=== PATIENT | male | born 1995 | race Caucasian/White ===

== ENCOUNTER 2019-01-10 11:23 | Outpatient (REF) | payer MEDICAID, SELFPAY ==
[2019-01-10 18:43] LABS: Abs Immature Grans 0.01 k/cumm (0.0-0.09); Absolute Basophil Count 0.02 k/cumm (0.0-0.2); Absolute Eosinophil Count 0.11 k/cumm (0.0-0.7); Absolute Lymphocyte Count 1.82 k/cumm (1.2-3.4); Absolute Monocyte Count 0.53 k/cumm (0.11-0.7); Basophils % 0.4; Eosinophils % 2.3; HCT 42.4 % (40.0-50.0); HGB 14.8 g/dL (13.5-17.5); Immature Grans % 0.2; Mean Corp. HGB Concentration 34.9 g/dL (32.0-36.0); Mean Platelet Volume 10.1 fL (8.0-11.0); Monocytes % 11.1; Platelet Count 162 x1000/uL (130-400); RBC 4.93 m/cumm (4.50-6.00); RBC Distribution Width 12.7 % (11.8-14.1); White Blood Cell Count 4.79 k/cumm (4.4-10.8)
[2019-01-10 18:44] LABS: ALT 148 U/L (12-78); AST 47 U/L (15-37); Albumin 4.2 g/dL (3.4-5.0); Alkaline Phosphatase 32 U/L (46-116); Anion Gap 7.4 mmol/L (3-11); BUN 13 mg/dL (7-18); Bilirubin, Total 0.6 mg/dL (0.2-1.0); CO2 29.6 mmol/L (21.0-32.0); CREATININE 0.89 mg/dL (0.70-1.30); Calcium 9.1 mg/dL (8.5-10.1); Chloride 104 mmol/L (98-107); Glucose 84 mg/dL (70-100); Sodium 141 mmol/L (136-145); Total Protein 7.6 g/dL (6.4-8.2)
[2019-01-12 09:55] LABS: Hepatitis B Surface Ag Negative (NEGAT)
[2019-01-12 09:59] LABS: HIV-1/2 Ag & Ab Screen Negative (NEGAT)
[2019-01-12 11:39] LABS: Hep A Total Ab w Rflx IgM Positive (NEGAT); Hep B Core Antibody Negative (NEGAT)
[2019-01-13 00:13] LABS: HCV Genotype 1a (Undetected)
[2019-01-14 09:44] LABS: ALT 134 U/L (7-55); ActiTest Grade A3; ActiTest Interpretation severe activity; ActiTest Score 0.63; Alpha-2-Macroglobulin 146 mg/dL (100 - 280); Apoliprotein A1 104 mg/dL (>=120); Bilirubin, Total 0.6 mg/dL (<=1.2); FibroTest Interpretation no fibrosis; FibroTest Score 0.16; FibroTest Stage F0; GGT 10 U/L (8 - 61); Haptoglobin 38 mg/dL (30 - 200)
[2019-01-14 12:05] LABS: Hep A Antibody IgM Negative (NEGAT)
== END 2019-01-10 11:43 ==
LOC: NCHCN ADD 11:23
PROVIDERS: PCP Nurse Practitioner Family; Visit Provider Nurse Practitioner Family
DX: B19.20 Unspecified viral hepatitis C without hepatic coma (principal); Z11.4 Encounter for screening for human immunodeficiency virus [HIV]
CPT/HCPCS: 80053; 82172; 82247; 82542; 82977; 83010; 83883; 84460; 86704; 86709; 87340; 87389; 85025; 87521; 87522

== ENCOUNTER 2019-01-30 06:45 | Emergency (ER) | payer MEDICAID, SELFPAY ==
[2019-01-30 06:53] VITALS: BP 117/76; PULSE 82; RESP 18; TEMP 36.7; O2SAT 95
--- NOTE | 2019-01-30 07:10 | DI.RAD_ITS ---
SYMPTOMS/DIAGNOSIS: COUGH, MALAISE PA AND LATERAL CHEST: The heart is normal in size. The lungs are clear. The mediastinal structures and pleura appear intact. CONCLUSION: Normal chest.
--- NOTE | 2019-01-30 07:13 | ED.GENADUL_ITS ---
Discharge Plan Disposition Patient Disposition: HOME Condition: Good Discharge Details Chief Complaint: GenMedical Clinical Impression: Nausea, Hypomagnesemia, Gastritis Primary Care Provider: Merly Puga ED Provider: Willam Mensah Home Meds and New Rx's Prescriptions: New magnesium 200 mg tablet 200 mg PO DAILY Qty: 10 RF: 0 No Action omeprazole 20 MG capsule,delayed release(DR/EC) 20 mg PO DAILY RF: 0 albuterol sulfate [ProAir HFA] 8.5 GM HFA aerosol inhaler 2 puff Inhalation Q6H PRN RF: 0 Fluticasone/Salmeterol [Advair 250-50 Diskus] 1 EACH Blst.W.Dev 1 ea Inhalation DAILY RF: 0 Discharge Instructions Instructions: Gastritis (ED), Hypomagnesemia (ED) Additional Instructions: Your magnesium levels are slightly low. I do not think this is the cause of your symptoms. But please take the magnesium to help return your levels to a normal level. I feel your symptoms are most likely secondary to mild gastritis. Please take your home omeprazole as directed. Please avoid spicy foods. If you notice any worsening of your symptoms, or any new symptoms such as vomiting, diarrhea, fever, chills, shortness of breath, chest pain, numbness, weakness, or fainting , please return immediately to the emergency department for reevaluation. Please follow up with your primary care provider as soon as possible for reassessment and reevaluation. As always, it was a pleasure participating in your medical care today. Stand Alone Forms: Work Release Referrals: Merly Puga [Primary Care Provider] - Medical Decision Making <Booker Mir MD - Last Filed: 01/30/19 07:45> 23-year-old male with a history of gastritis, hepatitis, reactive airway disease. He presents with 3 days of general malaise with nausea and a cough. He feels lightheaded with prolonged standing. He arrives with unremarkable vital signs, mild tenderness in the epigastric region. Differential diagnosis includes occult pneumonia, dehydration, gastritis. IV placed, labs obtained, patient given fluid bolus and referred for chest Xray. The patient does have an elevated SG on urinalysis. Will sign out tto Dr Mensah pending review of remainder of laboratories, CXR. <Willam Mensah DO - Last Filed: 01/30/19 08:43> The case was signed out to me by my colleague Dr. Booker Mir. Pending lab and x-ray results. Laboratory work-up is returned relatively benign. No significant anemia, white count, bandemia or left shift. Lipase is normal, liver function is at the patient's baseline. Magnesium is slightly low at 1.6, we will recommend outpatient supplementation. The patient is feeling much better at this time, and would like to go home. On reevaluation patient demonstrates a nontender nonsurgical abdomen, vital signs are notably reassuring. Historically the patient states that he has not been taking any of his omeprazole. We will recommend that he continues. We discussed importance of close follow-up. I have extensively reviewed the treatment plan and discharge instructions with the patient and their family. I have addressed all patient concerns at this time. The patient and family was made aware of what symptoms to monitor for that would warrant a return to the emergency department. Discussed the plan with the patient and family, they demonstrate verbal understanding and agreement with our assessment and plan at this time. HPI <Booker Mir MD - Last Filed: 01/30/19 07:45> General Mode of arrival: ambulatory . Date/Time Provider Initiated Documentation: 01/30/19 06:55 . Limitations to Documentation: no limitations . Information obtained by: patient and family . History of Present Illness 23 year old M presents to the emergency department with the chief complaint of General malaise, weakness, nausea for 3 days, described as moderate, Quality is described as dull and constant, and is localized to the abdomen. Patient reports no radiation. Patient started experiencing this day(s) and it has been constant. No relieving factors improve symptom(s), No exacerbating factors reported . Patient notes other (Malaise, weakness, cough, subjective chills, lightheadedness). Patient did receive the following treatments prior to arrival, none Related Data Home Medications Medication Instructions Recorded Confirmed Fluticasone/Salmeterol [Advair 1 ea INHALATION DAILY 11/11/17 01/30/19 250-50 Diskus] albuterol sulfate [Proair Hfa] 2 puff INHALATION Q6H PRN inhaler 04/26/18 01/30/19 NS omeprazole 20 mg PO DAILY tab-cap NS 08/20/18 05/26/19 magnesium 200 mg PO DAILY #10 tab 01/30/19 Previous Rx's Medication Instructions Recorded magnesium 200 mg PO DAILY #10 tab 01/30/19 Allergies Allergy/AdvReac Type Severity Reaction Status Date / Time trazodone AdvReac Mild EXCESSIVE Unverified 01/30/19 06:56 SLEEPINESS General Stated Complaint: GenMedical NE: 3 Review of Systems <Booker Mir MD - Last Filed: 01/30/19 07:45> Review of Systems Has not taken medications for 2 days. Positive sick contacts with family members. 8 systems reviewed and otherwise negative PFSH <Booker Mir MD - Last Filed: 01/30/19 07:45> Medical History ADHD Asthma, mild intermittent Chronic lower back pain Elevated liver enzymes Hepatitis C Marijuana abuse RUQ abdominal pain Tobacco dependence Social History Smoking/Tobacco Use Status: Current every day Tobacco Type: cigarettes Alcohol Intake: never Drug use: Never Do you feel safe at home: Yes Do you feel safe in your relationship?: Yes Exam <Booker Mir MD - Last Filed: 01/30/19 07:45> Narrative Exam Narrative: GEN: awake, alert, oriented 3. Pleasant, well groomed, interactive. HEAD: Normocephalic, atraumatic ENT: Mucous membranes moist, oropharynx unremarkable, External ear exam unremarkable EYES: PERRL, EOMI NECK: Full ROM, no TESS, no menigismus CHEST/RESP: Nontender, clear to auscultation bilateral, no wheeze/rhonchi/rales CARDIOVASCULAR: RRR, no murmur, rub issa. 2+ Rad pulse bilateral ABDOMEN: Soft, mild tenderness in epigastric region, no mass. +Bowel sounds EXT: Full ROM, no edema, no rash Neuro: Grossly normal neurologic exam, conversant, interactive. Psych: Speech fluent, thoughts congruent, affect normal Course <Booker Mir MD - Last Filed: 01/30/19 07:45> Vital Signs Temperature 36.7 C 01/30/19 06:53 Pulse 82 01/30/19 06:53 Respiratory Rate 18 01/30/19 06:53 Blood Pressure 117/76 01/30/19 06:53 Pulse Oximetry 95 01/30/19 06:53 Temperature 36.7 C 01/30/19 06:53 Pulse 82 01/30/19 06:53 Respiratory Rate 18 01/30/19 06:53 Respiratory Effort Non-Labored 01/30/19 06:55 Blood Pressure 117/76 01/30/19 06:53 Blood Pressure Position Sitting 01/30/19 06:53 Pulse Oximetry 95 01/30/19 06:53 Oxygen Delivery Method Room Air 01/30/19 06:53 Oxygen Flow Rate 0 01/30/19 06:53 Pain Level 0 01/30/19 06:53 Sign Out <Booker Mir MD - Last Filed: 01/30/19 07:45> Sign Out Data: Sign Out Comment: followup labs and CXR Last updated by Booker Mir MD at 01/30/19 07:48
[2019-01-30 07:29] LABS: Bilirubin Negative (Negative); Blood Negative (Negative); Clarity Clear; Glucose Negative (Negative); Ketones Negative (Negative); Leukocyte Esterase Negative (Negative); Nitrite Negative (Negative); Urobilinogen 0.2 EU/dL (Up TO 0.2); pH 6.5 (5-8)
[2019-01-30 07:40] LABS: Abs Immature Grans 0.01 k/cumm (0.0-0.09); Absolute Basophil Count 0.03 k/cumm (0.0-0.2); Absolute Eosinophil Count 0.13 k/cumm (0.0-0.7); Absolute Lymphocyte Count 1.75 k/cumm (1.2-3.4); Absolute Monocyte Count 0.55 k/cumm (0.11-0.7); Absolute Neutrophil Count 3.66 k/cumm (1.2-6.7); Basophils % 0.5; Eosinophils % 2.1; HCT 44.2 % (40.0-50.0); HGB 15.6 g/dL (13.5-17.5); Immature Grans % 0.2; Lymphocytes % 28.5; Mean Corp. HGB Concentration 35.3 g/dL (32.0-36.0); Mean Corpuscular Hemoglobin 30.4 pg (27.0-33.0); Mean Platelet Volume 9.3 fL (8.0-11.0); Neutrophils % 59.7; Platelet Count 162 x1000/uL (130-400); RBC 5.14 m/cumm (4.50-6.00); RBC Distribution Width 12.3 % (11.8-14.1); White Blood Cell Count 6.13 k/cumm (4.4-10.8)
[2019-01-30] MEDS: Normal Saline 1,000 ML 1000 ML IV (07:44)
[2019-01-30] MEDS: Ondansetron O.D.T. 4 MG TABEF (07:46)
[2019-01-30 07:54] LABS: ALT 198 U/L (12-78); AST 65 U/L (15-37); Albumin 4.3 g/dL (3.4-5.0); Alkaline Phosphatase 40 U/L (46-116); Anion Gap 9.4 mmol/L (3-11); BUN 15 mg/dL (7-18); Bilirubin, Total 0.5 mg/dL (0.2-1.0); CO2 28.6 mmol/L (21.0-32.0); Calcium 8.9 mg/dL (8.5-10.1); Chloride 101 mmol/L (98-107); Glucose 96 mg/dL (70-100); Magnesium 1.6 mg/dL (1.8-2.4); Sodium 139 mmol/L (136-145)
[2019-01-30 08:00] LABS: Lipase 114 U/L (73-393)
--- NOTE | 2019-01-30 08:18 | DI.VRAD_ITS ---
EXAM: XR Chest, 2 Views EXAM DATE/TIME: 01/30/2019 7:11 AM CLINICAL HISTORY: 23 years old, male; Signs and symptoms; Cough TECHNIQUE: Imaging protocol: XR of the chest, 2 views. COMPARISON: CR RIGHT RIBS TO INCLUDE CXR 03/19/2015 11:49 AM FINDINGS: Lungs: Unremarkable. No consolidation. Pleural space: Unremarkable. No pleural effusion. No pneumothorax. Heart/Mediastinum: Unremarkable. No cardiomegaly. Bones/joints: Unremarkable. IMPRESSION: No acute findings. Dictated and Authenticated by: Farhat Chapa MD. Ordering:GERMANIA Celeste MD
== END 2019-01-30 09:02 | disposition home or self-care (01) ==
PROVIDERS: Emergency Medicine; Emergency Provider Student in an Organized Health Care Education/Training Program; PCP Nurse Practitioner Family
DX: R11.0 Nausea (principal); E83.42 Hypomagnesemia; K29.00 Acute gastritis without bleeding; R42 Dizziness and giddiness; R05 Cough
CPT/HCPCS: 36415; 80053; 83690; 96360; 99284; 71046; 81003; 83735; 85025

== ENCOUNTER 2019-02-28 16:21 | Outpatient (REF) | payer MEDICAID, SELFPAY ==
[2019-03-02 10:24] LABS: Hepatitis B Surface Ag Negative (NEGAT)
[2019-03-02 11:12] LABS: HBs Antibody, Quant 617.1 mIU/mL; Hepatitis B Surface Ab Positive
[2019-03-02 11:37] LABS: Hep B Core Antibody Negative (NEGAT)
== END 2019-02-28 16:41 ==
LOC: NCHCN 16:21
PROVIDERS: PCP Nurse Practitioner Family; Visit Provider Family Medicine
DX: B19.20 Unspecified viral hepatitis C without hepatic coma (principal)
CPT/HCPCS: 86704; 86706; 87340

== ENCOUNTER 2019-04-11 11:11 | Outpatient (REF) | payer MEDICAID, SELFPAY ==
[2019-04-11 18:45] LABS: HCT 42.7 % (40.0-50.0); HGB 15.3 g/dL (13.5-17.5); Mean Corp. HGB Concentration 35.8 g/dL (32.0-36.0); Mean Corpuscular Volume 83.7 fL (80-95); Mean Platelet Volume 10.1 fL (8.0-11.0); Platelet Count 188 x1000/uL (130-400); RBC Distribution Width 12.3 % (11.8-14.1); White Blood Cell Count 8.72 k/cumm (4.4-10.8)
[2019-04-11 18:58] LABS: ALT 18 U/L (12-78); AST 11 U/L (15-37); Albumin 4.3 g/dL (3.4-5.0); Alkaline Phosphatase 40 U/L (46-116); Anion Gap 12.1 mmol/L (3-11); BUN 10 mg/dL (7-18); Bilirubin, Total 0.5 mg/dL (0.2-1.0); CO2 24.9 mmol/L (21.0-32.0); CREATININE 0.96 mg/dL (0.70-1.30); Calcium 9.1 mg/dL (8.5-10.1); Chloride 105 mmol/L (98-107); Glucose 95 mg/dL (70-100); Sodium 142 mmol/L (136-145); Total Protein 7.5 g/dL (6.4-8.2)
[2019-04-13 15:00] LABS: HCV RNA Detection Quantitative Detected (UNDECT)
== END 2019-04-11 11:31 ==
LOC: NCHCN 11:11
PROVIDERS: PCP Nurse Practitioner Family; Visit Provider Family Medicine
DX: B19.20 Unspecified viral hepatitis C without hepatic coma (principal)
CPT/HCPCS: 80053; 85027; 87522

== ENCOUNTER 2019-04-26 19:01 | Outpatient (REF) | payer MEDICAID, SELFPAY ==
[2019-04-26 19:05] LABS: HCT 44.6 % (40.0-50.0); HGB 15.8 g/dL (13.5-17.5); Mean Corp. HGB Concentration 35.4 g/dL (32.0-36.0); Mean Corpuscular Hemoglobin 29.6 pg (27.0-33.0); Mean Corpuscular Volume 83.5 fL (80-95); Mean Platelet Volume 9.7 fL (8.0-11.0); Platelet Count 215 x1000/uL (130-400); RBC 5.34 m/cumm (4.50-6.00); RBC Distribution Width 12.7 % (11.8-14.1); White Blood Cell Count 8.46 k/cumm (4.4-10.8)
[2019-04-26 19:21] LABS: ALT 18 U/L (12-78); AST 20 U/L (15-37); Albumin 4.6 g/dL (3.4-5.0); Alkaline Phosphatase 38 U/L (46-116); BUN 9 mg/dL (7-18); Bilirubin, Total 0.8 mg/dL (0.2-1.0); CREATININE 0.92 mg/dL (0.70-1.30); Calcium 9.3 mg/dL (8.5-10.1); Chloride 101 mmol/L (98-107); Glucose 114 mg/dL (70-100); Sodium 139 mmol/L (136-145); Total Protein 8.2 g/dL (6.4-8.2)
[2019-04-28 15:17] LABS: HCV RNA Detection Quantitative Undetected IU/mL (UNDECT)
== END 2019-04-26 19:21 ==
LOC: NCHCN 19:01
PROVIDERS: PCP Nurse Practitioner Family; Visit Provider Family Medicine
DX: B19.20 Unspecified viral hepatitis C without hepatic coma (principal)
CPT/HCPCS: 80053; 85027; 87522

== ENCOUNTER 2019-07-13 10:01 | Emergency (ER) | payer MEDICAID, SELFPAY ==
[2019-07-13] VITALS (103 sets, daily range): BP systolic 108–136; BP diastolic 62–77; PULSE 63–78; RESP 12–25; TEMP 36.6; O2SAT 95–98
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
[2019-07-13] MEDS: Normal Saline 1,000 ML 150 ML IV (10:30)
[2019-07-13] MEDS: Ketorolac 30 MG/ML VIAL IVP (10:34)
[2019-07-13 10:39] LABS: Anion Gap 8.8 mmol/L (3-11); BUN 11 mg/dL (7-18); CO2 28.2 mmol/L (21.0-32.0); CREATININE 0.84 mg/dL (0.70-1.30); Calcium 8.7 mg/dL (8.5-10.1); Chloride 104 mmol/L (98-107); Glucose 93 mg/dL (70-100); Potassium 3.5 mmol/L (3.5-5.1); Sodium 141 mmol/L (136-145)
[2019-07-13 10:40] LABS: Abs Immature Grans 0.03 k/cumm (0.0-0.09); Absolute Basophil Count 0.03 k/cumm (0.0-0.2); Absolute Eosinophil Count 0.09 k/cumm (0.0-0.7); Absolute Neutrophil Count 9.75 k/cumm (1.2-6.7); Basophils % 0.2; Eosinophils % 0.7; HCT 41.1 % (40.0-50.0); HGB 14.5 g/dL (13.5-17.5); Immature Grans % 0.2; Lymphocytes % 13.9; Mean Corp. HGB Concentration 35.3 g/dL (32.0-36.0); Mean Corpuscular Volume 84.9 fL (80-95); Mean Platelet Volume 8.9 fL (8.0-11.0); Monocytes % 7.8; Neutrophils % 77.2; Platelet Count 188 x1000/uL (130-400); RBC 4.84 m/cumm (4.50-6.00); RBC Distribution Width 12.7 % (11.8-14.1); White Blood Cell Count 12.63 k/cumm (4.4-10.8)
[2019-07-13 10:47] LABS: Absolute Lymphocyte Count 1.76 k/cumm (1.2-3.4); Absolute Monocyte Count 0.99 k/cumm (0.11-0.7)
[2019-07-13] MEDS: Normal Saline Flush 10 ML SYR IVP (11:14)
[2019-07-13] MEDS: Omnipaque 350 MG/ML 100 ML BTL IJ (11:14)
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
== END 2019-07-13 13:00 | disposition home or self-care (01) ==
PROVIDERS: Emergency Provider Emergency Medicine; PCP Nurse Practitioner Family
DX: S17.0 Crushing injury of larynx and trachea (principal); F17.210 Nicotine dependence, cigarettes, uncomplicated; Y04.0XXA Assault by unarmed brawl or fight, initial encounter
CPT/HCPCS: 36415; 70491; 80048; 96361; 96374; 99285; 70450; 71260; 85025; 99284; J1885; J3490

== ENCOUNTER 2019-09-06 11:07 | Outpatient (REF) | payer MEDICAID, SELFPAY ==
[2019-09-06 18:47] LABS: HCT 43.7 % (40.0-50.0); HGB 15.4 g/dL (13.5-17.5); Mean Corp. HGB Concentration 35.2 g/dL (32.0-36.0); Mean Corpuscular Hemoglobin 29.7 pg (27.0-33.0); Mean Corpuscular Volume 84.4 fL (80-95); Mean Platelet Volume 9.8 fL (8.0-11.0); Platelet Count 201 x1000/uL (130-400); RBC 5.18 m/cumm (4.50-6.00); RBC Distribution Width 12.7 % (11.8-14.1); White Blood Cell Count 5.59 k/cumm (4.4-10.8)
[2019-09-06 18:53] LABS: ALT 13 U/L (16-63); AST 12 U/L (15-37); Albumin 4.3 g/dL (3.4-5.0); Alkaline Phosphatase 29 U/L (46-116); Anion Gap 10.1 mmol/L (3-11); BUN 10 mg/dL (7-18); Bilirubin, Total 0.3 mg/dL (0.2-1.0); CO2 26.9 mmol/L (21.0-32.0); CREATININE 0.71 mg/dL (0.70-1.30); Calcium 9.1 mg/dL (8.5-10.1); Chloride 106 mmol/L (98-107); Glucose 92 mg/dL (74-106); Potassium 4.2 mmol/L (3.5-5.1); Sodium 143 mmol/L (136-145); Total Protein 7.4 g/dL (6.4-8.2)
[2019-09-09 12:57] LABS: HCV RNA Detection Quantitative 0 IU/mL (Undetected)
== END 2019-09-06 11:27 ==
LOC: NCHCN 11:07
PROVIDERS: PCP Nurse Practitioner Family; Visit Provider Nurse Practitioner Family
DX: B19.20 Unspecified viral hepatitis C without hepatic coma (principal)
CPT/HCPCS: 80053; 85027; 87522

== ENCOUNTER 2020-07-21 01:25 | Emergency (ER) | payer MEDICAID, SELFPAY ==
[2020-07-21 01:25] VITALS: BP 122/85; PULSE 68; RESP 16; TEMP 36.7; O2SAT 96
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
--- NOTE | 2020-07-21 01:34 | NUR.NOTE ---
Nursing Note: Dr Mulligan requested [facility] to come and get patient as he is refusing any care from us and threatening staff for requesting him to wear a mask. [facility] at bedside, awaiting mental health to arrive. Patient will go into police custody until sober.
== END 2020-07-21 01:55 | disposition home or self-care (01) ==
PROVIDERS: Emergency Provider Emergency Medicine; PCP Nurse Practitioner Family
DX: F10.120 Alcohol abuse with intoxication, uncomplicated (principal)
CPT/HCPCS: 99285; 99284

== ENCOUNTER 2021-02-26 14:02 | Outpatient (REF) | payer MEDICAID, SELFPAY ==
[2021-02-28 11:09] LABS: Syphilis Serology (RPR) Negative (Negative)
[2021-02-28 11:39] LABS: Hepatitis C Ab w Rflx HCV PCR Reactive (Negative)
[2021-02-28 15:12] LABS: Chlamydia Result Negative (Negative); GC Result Negative (Negative)
[2021-03-01 11:33] LABS: HSV Type 1 Ab, IgG Negative (Negative); HSV Type 2 Ab, IgG Positive (Negative)
[2021-03-01 13:22] LABS: HCV RNA Qualitative Undetected (Undetected)
== END 2021-02-26 14:03 | disposition home or self-care (01) ==
LOC: NCHCN 14:02
PROVIDERS: PCP Nurse Practitioner Family; Visit Provider Specialist
DX: Z20.2 Contact with and (suspected) exposure to infections with a predominantly sexual mode of transmission (principal); Z11.3 Encounter for screening for infections with a predominantly sexual mode of transmission; Z11.59 Encounter for screening for other viral diseases
CPT/HCPCS: 86803; 87491; 87522; 87529; 87591; 86592; 86695; 86696

== ENCOUNTER 2021-03-07 00:06 | Emergency (ER) | payer MEDICAID, SELFPAY ==
[2021-03-07] VITALS (13 sets, daily range): BP systolic 118–125; BP diastolic 60–83; PULSE 58–85; RESP 1–18; TEMP 36.7; O2SAT 97–99
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
--- NOTE | 2021-03-07 00:15 | RT.EKG_ITS ---
APPROVED REPORT Exam: Resting ECG Reason for Exam: Patient Location: E HR:66 bpm ECG Measurements Heart Rate 66 AXIS TN 181 P 59 QRSd 102 QRS 75 QT 370 T 33 QTc 388 Conclusion Sinus rhythm...normal P axis, V-rate 60- 99
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
[2021-03-07] MEDS: Ketorolac 15 MG/ML VIAL IVP (00:42)
[2021-03-07 00:50] LABS: Abs Immature Grans 0.02 10^3/uL (0.0-0.06); Absolute Basophil Count 0.07 10^3/uL (0.0-0.2); Absolute Eosinophil Count 0.34 10^3/uL (0.0-0.7); Absolute Monocyte Count 0.64 10^3/uL (0.1-0.8); Basophils % 0.6; Eosinophils % 3.1; HCT 39.9 % (40.0-50.0); HGB 13.7 g/dL (13.5-17.5); Immature Grans % 0.2; Lymphocytes % 25.8; MCH 29.5 pg (27.0-33.0); MCHC 34.3 % (32.0-36.0); MCV 85.8 fL (80-95); Monocytes % 5.9; Neutrophils % 64.4; Nucleated RBC 0 %; Platelet Count 204 10^3/uL (130-400); RBC 4.65 10^6/uL (4.36-5.78); RDW 12.3 % (11.8-14.1); WBC 10.84 10^3/uL (4.4-10.8)
[2021-03-07 00:51] LABS: Absolute Neutrophil Count 6.98 10^3/uL (1.2-6.7)
[2021-03-07] MEDS: Albuterol/Ipratropium 3 ML UPD VIAL UPD (00:59)
[2021-03-07 01:08] LABS: ALT 12 U/L (16-63); AST 11 U/L (15-37); Albumin 3.6 g/dL (3.4-5.0); Alkaline Phosphatase 43 U/L (46-116); Anion Gap 7.6 mmol/L (3-11); BUN 9 mg/dL (7-18); Bilirubin, Total 0.4 mg/dL (0.2-1.0); CO2 28.4 mmol/L (21.0-32.0); Chloride 106 mmol/L (98-107); Glucose 130 mg/dL (74-106); Magnesium 1.7 mg/dL (1.8-2.4); Potassium 3.3 mmol/L (3.5-5.1); Sodium 142 mmol/L (136-145); Total Protein 7.2 g/dL (6.4-8.2)
[2021-03-07 01:09] LABS: Troponin I < 0.05 ng/mL (<0.06)
[2021-03-07 01:21] LABS: D-Dimer 560 ng/mlFEU (<500)
[2021-03-07] MEDS: Omnipaque 350 MG/ML 100 ML BTL IJ (01:46)
[2021-03-07] MEDS: Normal Saline Flush 10 ML SYR IVP (01:47)
[2021-03-07] MEDS: Normal Saline - Diluent 50 ML VIAL IV (01:47)
--- NOTE | 2021-03-07 01:47 | DI.CT_ITS ---
Exam(s) CT CHEST PE CTA EXAM: CT CHEST PE CTA CLINICAL HISTORY: CP/tightness, elev ddimer. TECHNIQUE: Imaging Protocol: CT angiography of the chest was performed using pulmonary embolus benjy col. Multi planar reconstructions were performed. CONTRAST MATERIAL: Intravenous: Omnipaque 350 Contrast volume: 100 cc COMPARISON: CT CT NECK CHEST W from 07/13/2019 FINDINGS: CHEST: PULMONARY ARTERIES: There are no intraluminal filling defects to suggest acute pulmonary emboli. LUNGS: There are no infiltrates nor evidence of pulmonary infarction.. There are no pleural effusions . MEDIASTINUM: There is no hilar nor mediastinal adenopathy. Visualized thyroid unremarkable. CARDIAC: Heart size is upper normal. There is no pericardial effusion.Caliber of the thoracic aorta is within normal limits. There is no significant shift of the interventricular septum. PARTIALLY VISUALIZED UPPERMOST ABDOMEN: No obvious findings OSSEOUS: No significant osseous lesions.. IMPRESSION: 1. No evidence of acute pulmonary emboli. No evidence of pulmonary infarction.No pleural effusions. Lungs are clear. 2. Heart size normal. No pericardial effusion. No evidence of aortic dissection RADIATION DOSE DELIVERED: 290.68mGy.cm Total DLP DATA REPOSITORY: All CT scans at this facility are submitted to the National Radiology Data Registry (NRDR) Dose Index Registry (DIR) with the [employer] (ACR). RADIATION OPTIMIZATION: All CT scans at this facility use at least one of these dose optimization te chniques: automated exposure control; mA and/or kV adjustment per patient size (includes targeted exa ms where dose is matched to clinical indication); or iterative reconstruction.
[2021-03-07] MEDS: Potassium Chloride Liquid 20 MEQ PKT 10 MEQ PO (01:57)
[2021-03-07] MEDS: MAGNESIUM SULFATE 1 GM/100 ML BAG IVPB (01:58)
--- NOTE | 2021-03-07 01:58 | DI.VRAD_ITS ---
PROCEDURE INFORMATION: Exam: XR Chest Exam date and time: 03/07/2021 12:27 AM Age: 26 years old Clinical indication: Other: L > R chest pain TECHNIQUE: Imaging protocol: XR of the chest. Views: 2 views. COMPARISON: CT NECK CHEST W 07/13/2019 10:58 AM FINDINGS: Lungs: Unremarkable. No consolidation. Pleural spaces: Unremarkable. No pleural effusion. No pneumothorax. Heart/Mediastinum: Unremarkable. No cardiomegaly. Bones/joints: Unremarkable. IMPRESSION: No acute findings. Dictated and Authenticated by: Anders Hernandez MD. Ordering:GERMANIA Celeste MD
--- NOTE | 2021-03-07 02:02 | DI.VRAD_ITS ---
PROCEDURE INFORMATION: Exam: CTA Chest With Contrast Exam date and time: 03/07/2021 1:24 AM Age: 26 years old Clinical indication: Other: Cp/tightness, elev ddimer TECHNIQUE: Imaging protocol: Computed tomographic angiography of the chest with contrast. 3D rendering (Not supervised by radiologist): MIP and/or 3D reconstructed images were created by the technologist. Radiation optimization: All CT scans at this facility use at least one of these dose optimization techniques: automated exposure control; mA and/or kV adjustment per patient size (includes targeted exams where dose is matched to clinical indication); or iterative reconstruction. Contrast material: OMNIPAQUE 350; Contrast volume: 100 ml; Contrast route: INTRAVENOUS (IV); COMPARISON: CT CHEST FOR PULMONARY EMBOLUS 02/27/2017 5:03 PM FINDINGS: Pulmonary arteries: Pulmonary arteries well opacified. No pulmonary arterial embolism evident. Aorta: Thoracic aorta is normal in course and caliber. Lungs: No acute lung infiltrates or consolidation. No edema. Pleural spaces: No pleural effusion. Heart: Normal heart size. No pericardial effusion. Lymph nodes: Unremarkable. No enlarged lymph nodes. Bones/joints: Unremarkable. No acute fracture. Soft tissues: Unremarkable. IMPRESSION: 1. No pulmonary arterial embolism evident. 2. Clear lung ewing. No airspace consolidation. 3. No pleural effusion. 4. Normal heart size. No pericardial effusion. 5. Thoracic aorta is unremarkable. No dissection or aneurysm. Dictated and Authenticated by: Anders Hernandez MD. Ordering:GERMANIA Celeste MD
[2021-03-07] MEDS: predniSONE 20 MG TAB 60 MG PO (02:46)
[2021-03-07] MEDS: Albuterol HFA 8 GM 60 PUFF INH IH (02:47)
== END 2021-03-07 02:50 | disposition home or self-care (01) ==
LOC: ER 02:49
PROVIDERS: Emergency Provider Emergency Medicine; PCP Nurse Practitioner Family
DX: J45.901 Unspecified asthma with (acute) exacerbation (principal); E83.42 Hypomagnesemia; E87.6 Hypokalemia; R79.1 Abnormal coagulation profile; F17.210 Nicotine dependence, cigarettes, uncomplicated
CPT/HCPCS: 36415; 71275; 80053; 93005; 94640; 96365; 96375; 99285; 71046; 83735; 84484; 85025; 85379; 93010; 99284; J1885; J3475; J3490; J7512; J7620

== ENCOUNTER 2021-03-20 23:03 | Emergency (ER) | payer MEDICAID, SELFPAY ==
[2021-03-20 23:08] VITALS: BP 133/90; PULSE 82; RESP 16; TEMP 36.7; O2SAT 99
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
[2021-03-20] MEDS: Cephalexin 500 MG CAP, 4 CAPS/BTL PO (23:31)
--- NOTE | 2021-03-21 | NUR.NOTE ---
Nursing Note: Referral faxed to [facility] 03/20/21 23:39 libl
== END 2021-03-20 23:28 | disposition home or self-care (01) ==
LOC: ER 23:29
PROVIDERS: Emergency Provider Emergency Medicine; PCP Nurse Practitioner Family
DX: L03.115 Cellulitis of right lower limb (principal); S80.211A Abrasion, right knee, initial encounter; S80.271A Other superficial bite of right knee, initial encounter
CPT/HCPCS: 99283

== ENCOUNTER 2021-04-20 06:51 | Emergency (ER) | payer MEDICAID, SELFPAY ==
[2021-04-20] VITALS (23 sets, daily range): BP systolic 99–111; BP diastolic 54–79; PULSE 37–87; RESP 10–22; TEMP 36.5–36.6; O2SAT 95–100
--- NOTE | 2021-04-20 06:45 | DI.CT_ITS ---
Exam(s) CT RENAL COLIC WO EXAM: CT RENAL COLIC WO CLINICAL HISTORY: left flank pain. TECHNIQUE: Imaging Protocol: Axial computed tomography images with coronal and sagittal reformatted images were created and reviewed CONTRAST MATERIAL: Intravenous: none Oral: None COMPARISON: CT CT CHEST PE CTA from 03/07/2021 FINDINGS: VISUALIZED LUNG BASES: No nodules nor pleural effusions evident. ABDOMEN: There is no ascites. LIVER: There are no obvious focal hepatic lesions evident of this noninfused study. GALLBLADDER/BILIARY: No obvious gallbladder pathology. CBD is not dilated. PANCREAS: No evidence of pancreatic mass nor dilatation of the pancreatic duct. SPLEEN: Spleen is not enlarged. No obvious intrasplenic lesions. ADRENALS: Unremarkable. KIDNEYS:Small nonobstructive calculus lower pole right kidney. On the opposite-left side there is a calculus in the ureter mid level which measures 3 millimeters and exhibits mild hydronephrosis above this level. Similar findings are not seen on the opposite-right side. ABDOMINAL AORTA: Abdominal aorta is not enlarged. LYMPH NODES: There is no retroperitoneal nor paraaortic adenopathy. ABDOMINAL WALL: No evidence of significant anterior abdominal wall hernia. GI: There is no evidence of bowel obstruction, free air, nor abscess. PELVIS: LYMPH NODES: There is no intrapelvic nor inguinal adenopathy. GI: No evidence of appendicitis.No evidence of sigmoid diverticulitis. URINARY BLADDER: No calculi nor obvious masses evident REPRODUCTIVE: Prostate not enlarged. OSSEOUS: No significant osseous lesions. IMPRESSION: 1. There is a 3 millimeter obstructing calculus in the proximal mid left ureter. Mild hydronephrosis above this level. No calculi seen in the opposite-right kidney. No calculi evident in the urinary bladder. RADIATION DOSE DELIVERED: 485.2mGy.cm Total DLP DATA REPOSITORY: All CT scans at this facility are submitted to the National Radiology Data Registry (NRDR) Dose Index Registry (DIR) with the [employer] (ACR). RADIATION OPTIMIZATION: All CT scans at this facility use at least one of these dose optimization te chniques: automated exposure control; mA and/or kV adjustment per patient size (includes targeted exa ms where dose is matched to clinical indication); or iterative reconstruction.
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
[2021-04-20 07:10] LABS: Abs Immature Grans 0.01 10^3/uL (0.0-0.06); Absolute Basophil Count 0.06 10^3/uL (0.0-0.2); Absolute Eosinophil Count 0.18 10^3/uL (0.0-0.7); Absolute Lymphocyte Count 1.94 10^3/uL (1.2-3.4); Absolute Monocyte Count 0.62 10^3/uL (0.1-0.8); Absolute Neutrophil Count 5.24 10^3/uL (1.2-6.7); Basophils % 0.7; Eosinophils % 2.2; HCT 39.6 % (40.0-50.0); HGB 13.5 g/dL (13.5-17.5); Immature Grans % 0.1; Lymphocytes % 24.1; MCH 29.5 pg (27.0-33.0); MCHC 34.1 % (32.0-36.0); MCV 86.5 fL (80-95); MPV 8.9 fL (8.0-11.0); Monocytes % 7.7; Neutrophils % 65.2; Nucleated RBC 0 %; Platelet Count 145 10^3/uL (130-400); RBC 4.58 10^6/uL (4.36-5.78); RDW 12.3 % (11.8-14.1); RDW-SD 39.3 fL; WBC 8.05 10^3/uL (4.4-10.8)
[2021-04-20] MEDS: Ketorolac 30 MG/ML VIAL IVP (07:11)
[2021-04-20 07:21] LABS: Anion Gap 8.3 mmol/L (3-11); BUN 9 mg/dL (7-18); CO2 24.7 mmol/L (21.0-32.0); CREATININE 0.9 mg/dL (0.70-1.30); Calcium 8.2 mg/dL (8.5-10.1); Chloride 109 mmol/L (98-107); Glucose 100 mg/dL (74-106); Potassium 3.6 mmol/L (3.5-5.1); Sodium 142 mmol/L (136-145)
[2021-04-20] MEDS: MORPHine 10 MG/ML VIAL 5 MG IVP (07:42)
--- NOTE | 2021-04-20 08:00 | RT.EKG_ITS ---
APPROVED REPORT Exam: Resting ECG Reason for Exam: bradycardia Patient Location: E HR:39 bpm ECG Measurements Heart Rate 39 AXIS TN 187 P 53 QRSd 99 QRS 85 QT 444 T 31 QTc 357 Conclusion Sinus bradycardia...rate< 60. No STEMI. I have reviewed and interpreted ECG and agree with software generated interpretation.
[2021-04-20] MEDS: Normal Saline 500 ML IV ×2 (08:09→09:58)
--- NOTE | 2021-04-20 08:53 | DI.VRAD_ITS ---
PROCEDURE INFORMATION: Exam: CT Abdomen And Pelvis Without Contrast Exam date and time: 04/20/2021 7:00 AM Age: 26 years old Clinical indication: Other: Left flank pain TECHNIQUE: Imaging protocol: Computed tomography of the abdomen and pelvis without contrast. Radiation optimization: All CT scans at this facility use at least one of these dose optimization techniques: automated exposure control; mA and/or kV adjustment per patient size (includes targeted exams where dose is matched to clinical indication); or iterative reconstruction. COMPARISON: [place] ABDOMEN ULTRASOUND (P) 02/26/2018 8:51 PM FINDINGS: Lungs: Unremarkable. Lung bases are clear. Liver: Unremarkable. No mass. Gallbladder and bile ducts: Unremarkable. No calcified stones. No ductal dilation. Pancreas: Unremarkable. No ductal dilation. Spleen: Unremarkable. No splenomegaly. Adrenal glands: Normal. No mass. Kidneys and ureters: 3 mm obstructing stone proximal left ureter. Mild left hydronephrosis. Findings suggestive of medullary sponge kidney . No right-sided obstructive uropathy Stomach and bowel: Large stool load suggesting constipation. Mild small bowel ileus Appendix: No evidence of appendicitis. Intraperitoneal space: Unremarkable. No free air. No significant fluid collection. Vasculature: Unremarkable. No abdominal aortic aneurysm. Lymph nodes: Unremarkable. No enlarged lymph nodes. Urinary bladder: Unremarkable as visualized. Reproductive: Unremarkable as visualized. Bones/joints: Wedge compression deformity L1 appears chronic Soft tissues: Unremarkable. IMPRESSION: 1. 3 mm obstructing stone proximal left ureter. Mild left hydronephrosis. 2. Findings suggestive of medullary sponge kidney Dictated and Authenticated by: Iram Tobar MD. Ordering:MASON Arenas MD
[2021-04-20 09:32] LABS: Bilirubin Small (Negative); Blood Large (Negative); Clarity Sl Cloudy (Clear); Glucose Negative (Negative); Ketones Negative (Negative); Leukocyte Esterase Negative (Negative); Nitrite Negative (Negative); Specific Gravity >= 1.030 (1.005-1.025); Urobilinogen 0.2 EU/dL (Up TO 0.2); pH 5.5 (5-8)
[2021-04-20 09:41] LABS: Bacteria Few HPF (Negative); C & S Indicated? No; Casts Negative LPF (Negative); Crystals Negative HPF (Negative); Epithelial Cells Few HPF (Negative); Mucus Moderate (Negative); RBC >50 HPF (0-2)
[2021-04-20] MEDS: ACETAMINOPHEN 1,000 MG/100 ML BTL 400 MG IVPB (09:58)
[2021-04-20] MEDS: traMADol 50 MG TAB PO (10:59)
--- NOTE | 2021-04-20 11:00 | NUR.NOTE ---
pt referral sent to dr garland
[2021-04-20] MEDS: Tamsulosin 0.4 MG CAPCR PO (11:03)
== END 2021-04-20 11:28 | disposition home or self-care (01) ==
PROVIDERS: Emergency Medicine; Emergency Provider Physician Assistant; PCP Physician Assistant
DX: N13.2 Hydronephrosis with renal and ureteral calculous obstruction (principal); R10.12 Left upper quadrant pain; R11.2 Nausea with vomiting, unspecified
CPT/HCPCS: 36415; 80048; 93005; 96361; 96374; 96375; 99285; 74176; 81003; 81015; 85025; 93010; 99284; J0131; J1885; J2270

== ENCOUNTER 2021-05-03 21:28 | Emergency (ER) | payer MEDICAID, SELFPAY ==
[2021-05-03] VITALS (21 sets, daily range): BP systolic 103–137; BP diastolic 54–85; PULSE 62–88; RESP 11–18; TEMP 36.6; O2SAT 95–100
--- NOTE | 2021-05-03 21:15 | DI.CT_ITS ---
Exam(s) CT HEAD WO EXAM: CT HEAD WO CLINICAL HISTORY: altered mental status. TECHNIQUE: Imaging Protocol: Axial computed tomography images with coronal and sagittal reformatted images were created and reviewed COMPARISON: CT CT HEAD WO from 07/13/2019 FINDINGS: Ventricles and Extra axial spaces: Normal in size and morphology for the patient's age. Hemorrhage: None. Cerebral parenchyma: Normal. Midline shift: None. Brainstem/Cerebellum: Normal. Calvarium: Normal. Visualized Paranasal sinuses/Mastoids: Mild mucosal thickening in the ethmoid air cells. The remaini ng visualized paranasal sinuses and mastoid air cells are clear. Soft Tissues: Unremarkable. IMPRESSION: No acute intracranial process. RADIATION DOSE DELIVERED: 790.59mGy.cm Total DLP DATA REPOSITORY: All CT scans at this facility are submitted to the National Radiology Data Registry (NRDR) Dose Index Registry (DIR) with the [employer] (ACR). RADIATION OPTIMIZATION: All CT scans at this facility use at least one of these dose optimization te chniques: automated exposure control; mA and/or kV adjustment per patient size (includes targeted exa ms where dose is matched to clinical indication); or iterative reconstruction.
--- NOTE | 2021-05-03 21:15 | RT.EKG_ITS ---
APPROVED REPORT Exam: Resting ECG Reason for Exam: drug overdose Patient Location: E HR:83 bpm ECG Measurements Heart Rate 83 AXIS TX 178 P 64 QRSd 100 QRS 87 QT 370 T 42 QTc 434 Conclusion Sinus rhythm...normal P axis, V-rate 60- 99 Probable left atrial enlargement...P >50mS, <-0.10mV V1
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
--- NOTE | 2021-05-03 21:43 | DI.VRAD_ITS ---
PROCEDURE INFORMATION: Exam: CT Head Without Contrast Exam date and time: 05/03/2021 9:18 PM Age: 26 years old Clinical indication: Other: Altered mental status TECHNIQUE: Imaging protocol: Computed tomography of the head without contrast. Radiation optimization: All CT scans at this facility use at least one of these dose optimization techniques: automated exposure control; mA and/or kV adjustment per patient size (includes targeted exams where dose is matched to clinical indication); or iterative reconstruction. COMPARISON: CT HEAD WO 07/13/2019 10:55 AM FINDINGS: Brain: Normal. No hemorrhage. Unremarkable white matter. No mass effect. Cerebral ventricles: No ventriculomegaly. Paranasal sinuses: Visualized sinuses are unremarkable. No fluid levels. Mastoid air cells: Visualized mastoid air cells are well aerated. Bones/joints: Unremarkable. No acute fracture. Soft tissues: Unremarkable. IMPRESSION: 1. No acute intracranial abnormality. 2. No intracranial hemorrhage. 3. No mass or edema. 4. No hydrocephaly. 5. Stable exam since 07/13/2019. Dictated and Authenticated by: Anders Hernandez MD. Ordering:ART Archer MD
[2021-05-03 21:46] LABS: Source Nasal/Nares
[2021-05-03 21:56] LABS: Abs Immature Grans 0.02 10^3/uL (0.0-0.06); Absolute Basophil Count 0.08 10^3/uL (0.0-0.2); Absolute Eosinophil Count 0.13 10^3/uL (0.0-0.7); Absolute Lymphocyte Count 2.52 10^3/uL (1.2-3.4); Absolute Monocyte Count 0.57 10^3/uL (0.1-0.8); Absolute Neutrophil Count 4.01 10^3/uL (1.2-6.7); Basophils % 1.1; Eosinophils % 1.8; HCT 42.9 % (40.0-50.0); HGB 14.6 g/dL (13.5-17.5); Immature Grans % 0.3; Lymphocytes % 34.4; MCH 28.9 pg (27.0-33.0); MPV 8.9 fL (8.0-11.0); Monocytes % 7.8; Neutrophils % 54.6; Nucleated RBC 0 %; Platelet Count 188 10^3/uL (130-400); RBC 5.05 10^6/uL (4.36-5.78); RDW 12.1 % (11.8-14.1); RDW-SD 37.3 fL; WBC 7.33 10^3/uL (4.4-10.8)
[2021-05-03] MEDS: Normal Saline 1,000 ML 1000 ML IV (21:58)
--- NOTE | 2021-05-03 22:00 | NUR.NOTE ---
2200-Plan to insert cath for urine specimen, patient begins to void, able to collect output in urinal; specimen sent to lab. Clean, dry gown and linens provided.Nursing Note:
[2021-05-03 22:01] LABS: Magnesium 1.6 mg/dL (1.8-2.4)
[2021-05-03 22:10] LABS: Bilirubin Negative (Negative); Blood Negative (Negative); Clarity Clear (Clear); Glucose Negative (Negative); Ketones Negative (Negative); Leukocyte Esterase Negative (Negative); Nitrite Negative (Negative); Urobilinogen 0.2 EU/dL (Up TO 0.2)
[2021-05-03 22:14] LABS: Salicylate < 2.8 mg/dL (<2.8)
[2021-05-03 22:14] LABS: ALT 34 U/L (16-63); AST 32 U/L (15-37); Albumin 4.1 g/dL (3.4-5.0); Alkaline Phosphatase 29 U/L (46-116); Anion Gap 11.3 mmol/L (3-11); BUN 5 mg/dL (7-18); Bilirubin, Total 0.6 mg/dL (0.2-1.0); CO2 25.7 mmol/L (21.0-32.0); Calcium 8.7 mg/dL (8.5-10.1); Chloride 108 mmol/L (98-107); ETHANOL BLOOD 191.2 mg/dL (<3); Glucose 161 mg/dL (74-106); Sodium 145 mmol/L (136-145); TSH (W/Ref FT4) 2.26 uIU/mL (0.36-3.74); Total Protein 7.4 g/dL (6.4-8.2)
[2021-05-03 22:17] LABS: Potassium 2.7 mmol/L (3.5-5.1)
[2021-05-03 22:18] LABS: Acetaminophen < 2 ug/mL (10-30)
[2021-05-03 22:22] LABS: *AMPHETAMINES SCREEN URINE Negative (Negative); *BARBITURATES SCREEN URINE Negative (Negative); *BENZODIAZEPINES SCREEN URINE Negative (Negative); Cannabinoids THC Positive (Negative); Cocaine Screen,Urine Negative (Negative); METHADONE URINE SCREEN Negative (Negative); OPIATES URINE SCREEN Negative (Negative); Tricyclic Antidepressants Negative (Negative)
[2021-05-03] MEDS: POTASSIUM CHLORIDE 10 MEQ/100 ML BAG 100 MEQ IVPB (22:35)
[2021-05-03 22:37] LABS: COVID-19 PCR Negative (Negative)
[2021-05-04] VITALS (68 sets, daily range): BP systolic 96–131; BP diastolic 59–93; PULSE 50–83; RESP 12–28; TEMP 36.8; O2SAT 92–100
--- NOTE | 2021-05-04 00:14 | NUR.NOTE ---
Patient linens and gown soiled; soaked with urine. Clean dry gown and chux placed, linens changed. Patient SO at bedside. Patient stirs but follows commands. Lights dimmed for comfort. Nursing Note:
--- NOTE | 2021-05-04 01:09 | NUR.NOTE ---
SO provided with sandwich and chips and recliner and warm blankets. At bedside, to attempt to rest.Nursing Note:
--- NOTE | 2021-05-04 02:40 | NUR.NOTE ---
Patient bed soaked with urine. Patient arouses to his name being called. Able to assist in turning side to side. Clean, dry chux, brief and linens placed. SO remains at bedside. Nursing Note:
--- NOTE | 2021-05-04 03:55 | NUR.NOTE ---
Patient repositions independently in bed. SO asleep in room. Monitors repositioned. Follows commands. Warm blankets provided.Nursing Note:
--- NOTE | 2021-05-04 06:45 | NUR.NOTE ---
Provided with ham sandwich, donna crackers and apple juice.Nursing Note:
== END 2021-05-04 16:30 | disposition home or self-care (01) ==
PROVIDERS: Emergency Medicine; Emergency Provider Emergency Medicine; PCP Physician Assistant
DX: R41.82 Altered mental status, unspecified (principal); E87.6 Hypokalemia; R45.1 Restlessness and agitation; F10.120 Alcohol abuse with intoxication, uncomplicated; Y90.6 Blood alcohol level of 120-199 mg/100 ml; Z20.822 Contact with and (suspected) exposure to COVID-19; Z03.818 Encounter for observation for suspected exposure to other biological agents ruled out
CPT/HCPCS: 36415; 80053; 80307; 87635; 93005; 96361; 96365; 99285; 70450; 80320; 80329; 81003; 83735; 84443; 85025; 93010; J3480

== ENCOUNTER 2022-12-04 15:11 | Outpatient (REF) | payer MEDICAID, SELFPAY ==
[2022-12-06 02:28] LABS: COVID-19 RT-PCR UVMMC Result Negative (Negative)
== END 2022-12-04 15:12 | disposition home or self-care (01) ==
LOC: LBN 15:11
PROVIDERS: PCP Physician Assistant; Visit Provider Physician Assistant Medical
DX: Z20.822 Contact with and (suspected) exposure to COVID-19 (principal); R05.3 Chronic cough
CPT/HCPCS: U0003

== ENCOUNTER 2022-12-09 01:54 | Outpatient (CLI) | payer MEDICAID, SELFPAY ==
--- NOTE | 2022-12-09 | DI.RAD_ITS ---
Exam(s) XR CHEST 2V PA LATERAL EXAM: XR CHEST 2V PA LATERAL CLINICAL HISTORY: ACUTE EXAC OF MOD ASTHMA, J45.41 TECHNIQUE: 2D digital imaging was performed. COMPARISON: CT CT CHEST PE CTA from 03/07/2021 FINDINGS: HEART: Normal size. Aorta: Not dilated. PULMONARY VASCULATURE: Normal. LUNGS: Clear. PLEURAL SPACE: No pleural effusion or pneumothorax. BONE:Unremarkable for age. IMPRESSION: No acute abnormality. DATA REPOSITORY: RADIATION DOSE DELIVERED:
== END 2022-12-09 02:14 ==
PROVIDERS: PCP Physician Assistant; Visit Provider Nurse Practitioner Family
DX: J45.41 Moderate persistent asthma with (acute) exacerbation (principal)
CPT/HCPCS: 71046

== ENCOUNTER 2023-04-07 13:26 | Outpatient (REF) | payer MEDICAID, SELFPAY ==
[2023-04-07 17:54] LABS: Anion Gap 10.3 mmol/L (3-11); BUN 11 mg/dL (7-18); CO2 26.7 mmol/L (21.0-32.0); Calcium 8.8 mg/dL (8.5-10.1); Calculated LDL 65 mg/dL (<100); Chloride 103 mmol/L (98-107); Cholesterol 112 mg/dL (<200); Estimated GFR 104.48 (mL/min/1.73m2); Glucose 107 mg/dL (74-106); HDL Cholesterol 37 mg/dL (40-60); Magnesium 1.7 mg/dL (1.8-2.4); Potassium 3.9 mmol/L (3.5-5.1); Sodium 140 mmol/L (136-145); Triglyceride 53 mg/dL (<150)
[2023-04-09 09:05] LABS: Hepatitis B Surface Ag Negative (Negative)
[2023-04-09 10:11] LABS: HIV-1/2 Ag & Ab Screen Negative (Negative)
[2023-04-09 11:29] LABS: HCV RNA Qualitative Undetected (Undetected)
[2023-04-09 11:35] LABS: Syphilis Serology (RPR) Negative (Negative)
[2023-04-09 13:08] LABS: Chlamydia Result Negative (Negative); GC Result Negative (Negative)
== END 2023-04-07 13:27 | disposition home or self-care (01) ==
LOC: NCHCN 13:26
PROVIDERS: PCP Physician Assistant; Visit Provider Family Medicine
DX: E87.6 Hypokalemia (principal); Z13.220 Encounter for screening for lipoid disorders; Z11.3 Encounter for screening for infections with a predominantly sexual mode of transmission; Z11.4 Encounter for screening for human immunodeficiency virus [HIV]; Z11.59 Encounter for screening for other viral diseases; Z87.19 Personal history of other diseases of the digestive system
CPT/HCPCS: 80048; 80061; 87340; 87389; 87491; 87522; 87591; 83735; 86592

== ENCOUNTER 2023-06-15 13:40 | Emergency (ER) | payer MEDICAID, SELFPAY ==
[2023-06-15 13:46] VITALS: BP 143/106; PULSE 83; RESP 20; TEMP 37.2; O2SAT 98
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
[2023-06-15 14:47] LABS: COVID-19 PCR Negative (Negative); Influenza A PCR Negative (Negative); Influenza B PCR Negative (Negative); RSV PCR Negative (Negative)
[2023-06-15 14:48] LABS: Source Nasopharynx
--- NOTE | 2023-06-16 11:08 | NUR.NOTE ---
Patient had a question for Dr Mensah and would like his RX sent to [facility]. Nursing Note:
--- NOTE | 2023-06-16 11:14 | W.ED.FU ---
Date of service: 06/16/23 Time of Service: 11:14 Follow Up Plan: Patient did call the emergency department. He still feels ill. However unfortunately he did not pear picker the antibiotic that was prescribed. When he was in the ED he requested that it be sent to [facility]. Unfortunately he went directly back to [place] and did not go and pick it up. He is now asking that we send the prescription to [facility] [facility] pharmacy. We will add Shad Mullins. He is asking for something to sleep. Will recommend Benadryl. I did discuss with him taking 50 mg of Benadryl once daily would be reasonable to help sleep at night. He understands this. Otherwise patient sounds stable. I did discuss with him that he can come back at any point for reevaluation if he would desire or think it necessary. We are happy to see him. I have extensively reviewed the treatment plan and discharge instructions with the patient. I have addressed all patient concerns at this time. The patient was made aware of what symptoms to monitor for that would warrant a return to the emergency department. Discussed the plan with the patient, they demonstrate verbal understanding and agreement with our assessment and plan at this time. The documentation in this chart was dictated using [employer] dictation software. Please excuse any dictation errors.
== END 2023-06-15 14:21 | disposition home or self-care (01) ==
PROVIDERS: Emergency Provider Student in an Organized Health Care Education/Training Program; PCP Physician Assistant
DX: J45.901 Unspecified asthma with (acute) exacerbation (principal); J18.9 Pneumonia, unspecified organism
CPT/HCPCS: 87637; 99283; 99284